=== PATIENT | male | born 1940 | race Caucasian/White ===

== ENCOUNTER 2016-10-26 15:37 | Emergency (ER) | payer OTHER ==
[2016-10-26 15:49] VITALS: TEMP 98.2
--- NOTE | 2016-10-26 16:37 | EDPHY ---
H & P Stated Complaint: Fell last Thursday;R rib pain;no resp difficulty Time Seen by Provider: 10/26/16 16:27 HPI/ROS: Chief complaint: Right back pain status post fall HPI: 75-year-old male fell several days ago onto his right hand side striking the edge of a table. Patient has had pain in his right back since that time. Hurts to cough and take a deep breath. Has had occasional productive greenish sputum. No fevers or chills. No nausea or vomiting. Patient states that is was mechanical fall. He has had increasing falls lately. [facility] A family friend did get him a walker today. ROS: 10 point Review of Systems is negative except as noted in the HPI. Past medical history: None Physical exam: Gen: Awake, Alert, No Distress HEENT: Nose: no rhinorrhea Eyes: PERRLA, EOMI Mouth: Moist mucosa Neck: Supple, no JVD Chest: He has a contusion in his right posterior chest wall with tenderness. There is no crepitus or step-offs. There is no subcutaneous emphysema., lungs clear to auscultation Heart: S1, S2 normal, no murmur Abd: Soft, non-tender, no guarding Back: no CVA tenderness, no midline tenderness Ext: no edema, non-tender Skin: no rash Neuro: CN II-XII intact, Sensation grossly intact, Strength 5/5 in bilateral upper and lower extremities - Personal History Current Tetanus Diphtheria and Acellular Pertussis (TDAP): Yes - Medical/Surgical History Other PMH: HTN. glaucoma - Social History Smoking Status: Former smoker Constitutional: Initial Vital Signs Temperature (C) 36.8 C 10/26/16 15:40 Heart Rate 69 10/26/16 15:40 Respiratory Rate 16 10/26/16 15:40 Blood Pressure 179/109 H 10/26/16 15:40 O2 Sat (%) 97 10/26/16 15:40 O2 Delivery Mode Room Air Allergies/Adverse Reactions: No Known Allergies Allergy (Unverified 10/26/16 15:49) Home Medications: Medication Instructions Recorded Hydrocodone/Acetaminophen 1 - 2 each PO Q4-6PRN PRN #10 10/26/16 [Hydrocodon-Acetaminophen 5-325] tablet Zolpidem Tartrate [Ambien 5MG (*)] 5 mg PO HS 03/12/17 Medical Decision Making ED Course/Re-evaluation: Patient status post fall with right back pain. There is no pneumothorax or infiltrate. Case management has been involved. They will be contacting him tomorrow to arrange for possible additional services. He has a walker now guarantees that he will be using it the future. He is asking to go home put. Otherwise will discharge with follow up with primary care physician. - Data Points Medications Given: Discontinued Medications Hydrocodone Bitart/Acetaminophen (Marcell 5/325mg Prepack#6) 1 btl TAKEHOME EDNOW ONE Stop: 10/26/16 19:13 Last Admin: 10/26/16 19:18 Dose: 1 btl Departure - Departure Disposition: Home, Routine, Self-Care Clinical Impression: Chest wall pain Condition: Good Instructions: Hydrocodone/Acetaminophen (By mouth), Chest Wall Pain (ED) Additional Instructions: Make sure usual walker at all times. Follow up with primary care physician in next 2-3 days for further evaluation. Return emergency depart for increasing falls, shortness of breath, worsening pain, nausea, vomiting or any other concerns. Referrals: NONE *PRIMARY CARE P,. [Unknown] - As per Instructions Prescriptions: Hydrocodone/Acetaminophen [Hydrocodon-Acetaminophen 5-325] 1 - 2 each PO Q4- 6PRN PRN #10 tablet PRN Reason: Pain, Severe
[2016-10-26] MEDS ORDERED: HYDROCOD/APAP 5/325 PREPACK#6 BTL TAKEHOME ONE (19:12)
[2016-10-26 19:25] VITALS: BP 150/120; PULSE 66; RESP 18; O2SAT 95
== END 2016-10-26 19:25 | disposition home or self-care (01) ==
DX: S29.9XXA Unspecified injury of thorax, initial encounter (principal); I10 Essential (primary) hypertension; Z87.891 Personal history of nicotine dependence; W01.198A Fall on same level from slipping, tripping and stumbling with subsequent striking against other object, initial encounter

== ENCOUNTER → 2017-07-17 | Outpatient (CLI) | payer OTHER | LOC: FIMAGING 14:06 | PROVIDERS: ATTEND Internal Medicine | DX: I65.23 Occlusion and stenosis of bilateral carotid arteries (principal) ==

== ENCOUNTER 2017-08-07 09:34 | Inpatient (IN) | payer OTHER ==
--- NOTE | 2017-07-29 11:58 | CPEKG ---
Heart Rate: 57 RR Interval: 1053 P-R Interval: 208 QRSD Interval: 88 QT Interval: 424 QTC Interval: 413 P Ivor: 49 QRS Ivor: 20 T Wave Ivor: 45 EKG Severity - NORMAL ECG - EKG Impression: SINUS RHYTHM Electronically Signed By: Dahlia Quinonez 29-Jul-2017 14:28:36
[2017-07-29 12:05] LABS: PLATELET COUNT 244 10^3/uL (150-400)
[~2017-08-07 09:34] MED LIST: ACETAMINOPHEN 500 MG TAB PO ONE; GABAPENTIN 300 MG CAP PO ONE; ceFAZolin 2 GM/SWFI 2 GM/20 ML SYR IVP ONE; morphINE PF 5 MG/10 ML INJ IT ONE
--- NOTE | 2017-08-07 10:42 | PDHPUP ---
History & Physical Update H&P update statement: This history and physical update is based on an assessment of the patient which was completed after admission or registration (within 24 hours), but prior to the surgery/procedure. H&P update: H&P reviewed & patient examined, no change in patient's condition since H&P completed (Patient has signed consents. Site has been marked. He understands that he has 6 lumbar verebrae and we will address the level at which he had a cyst. His symptoms are bilateral...we will plan for bilateral foraminotimies and leftsided TLIF. He is in agreement.)
[2017-08-07] MEDS ORDERED: LR 1,000 ML IV ONE (10:57)
[2017-08-07] MEDS ORDERED: LIDOCAINE 1% 2 ML INJ ID PRN (10:57)
--- NOTE | 2017-08-07 11:08 | PDANEPAE ---
ANE History of Present Illness TLIF Lumbar area ANE Past Medical History - Cardiovascular History Hx Hypertension: Yes Hx Arrhythmias: No Hx Chest Pain: No Hx Coronary Artery / Peripheral Vascular Disease: No Hx CHF / Valvular Disease: No Hx Palpitations: No - Pulmonary History Hx COPD: No Hx Asthma/Reactive Airway Disease: No Hx Recent Upper Respiratory Infection: No Hx Oxygen in Use at Home: No Hx Sleep Apnea: No Sleep Apnea Screening Result - Last Documented: Positive Pulmonary History Comment: hx of mild sleep apnea, dx about 25 years ago, CPAP not recommended at the time - Neurologic History Hx Cerebrovascular Accident: No Hx Seizures: No Hx Dementia: No Neurologic History Comment: TIA 1991, patient does not recall diagnosis - Endocrine History Hx Diabetes: No Obesity: mild - Renal History Hx Renal Disorders: No - Liver History Hx Hepatic Disorders: No - Neurological & Psychiatric Hx Hx Neurological and Psychiatric Disorders: No - Cancer History Hx Cancer: No - Congenital Disorder History Hx Congenital Disorders: No - GI History GERD: no Hx Gastrointestinal Disorders: No - Other Health History Other Health History: Glaucoma with stent in L eye - Chronic Pain History Chronic Pain: Yes - Surgical History Prior Surgeries: patial knee replacement 2013. vasectomy reversal 1986 ANE Review of Systems Review of Systems: - Exercise capacity METS (RN): 3 METS ANE Patient History - Allergies Allergies/Adverse Reactions: No Known Allergies Allergy (Verified 07/24/17 16:18) - Home Medications Home Medications: Dorzolamide HCl/Timolol Maleat [Cosopt Eye Drops] 1 drop EACHEYE DAILY 07/16/17 [Last Taken 08/06/17] Latanoprost 0.005% [Xalatan 0.005% (*)] 1 drops EACHEYE BID 07/16/17 [Last Taken 08/06/17] Lisinopril [Zestril 10 mg (*)] 10 mg PO DAILY 07/16/17 [Last Taken 08/07/17 08: 00] ZOLPIDEM TARTRATE [Ambien CR 12.5 mg] 12.5 mg PO DAILY@07/16/17 [Last Taken 08/06/17] Zolpidem Tartrate [Ambien 10 mg] 10 mg PO DAILY@07/16/17 [Last Taken 08/06/17 ] - Anes Hx Hx Anesthesia Complications (with details): difficult intubation requiring rescheduling of case, about 30 years ago - Smoking Hx Smoking Status: Former smoker - Alcohol Use Alcohol Use: Other (1 drink per day) - Family Anes Hx Family Anes Hx: none Family Hx Anesthesia Complications: NA ANE Labs/Vital Signs - Labs Result Diagrams: 07/29/17 11:35 07/29/17 11:35 - Vital Signs Height: 177.8 cm Weight: 90.718 kg ANE Physical Exam - Airway Neck exam: decreased ROM Mallampati Score: Class 3 (>3 FB mouth opening, short TM distance) Mouth exam: small mouth opening - Pulmonary Pulmonary: clear to auscultation - Cardiovascular Cardiovascular: regular rate and rhythym - ASA Status ASA Status: III ANE Anesthesia Plan Anesthesia Plan: general endotracheal anesthesia (possibility of awake intubation discussed, questions answered.)
[2017-08-07] MEDS ORDERED: ACETAMINOPHEN 500 MG TAB ONE (11:14)
[2017-08-07] MEDS ORDERED: GABAPENTIN 300 MG CAP ONE (11:15)
[2017-08-07] MEDS ORDERED: ceFAZolin 2 GM/SWFI 20 ML SYR IVP ONE (11:15)
[2017-08-07] MEDS ORDERED: MIDAZOLAM 2 MG/2 ML VIAL IVP ONE (11:21)
[2017-08-07] MEDS ORDERED: THROMBIN (BOVINE) 20,000 UNIT VIAL TP ONE (11:32)
[2017-08-07] MEDS ORDERED: BUPIVACAINE 0.25% 30 ML SDV ONE (11:33)
[2017-08-07] MEDS ORDERED: BACITRACIN 50,000 UNITS/10 ML SYR IRR ONE (11:34)
[2017-08-07] MEDS ORDERED: fentaNYL 250 MCG/5 ML INJ ONE (11:38)
[2017-08-07] MEDS ORDERED: PROPOFOL/EMULSION 500 MG/50 ML BOTTLE IV ONE (11:38)
[2017-08-07] MEDS ORDERED: ROCURONIUM 50 MG/5 ML VIAL ONE (11:40)
[2017-08-07] MEDS ORDERED: PROPOFOL 200 MG/20 ML VIAL ONE (14:30)
[2017-08-07] MEDS ORDERED: NALOXONE HCL 0.4 MG/ML INJ IVP PRN (15:37)
[2017-08-07] MEDS ORDERED: fentaNYL 100 MCG/2 ML INJ IVP PRN (15:47)
[2017-08-07] MEDS ORDERED: NS W/ 20 KCl/L 1,000 ML IV SCH (16:00)
[2017-08-07] MEDS ORDERED: BISACODYL 10 MG SUPP PR PRN (16:00)
[2017-08-07] MEDS ORDERED: METHOCARBAMOL 750 MG TAB PO PRN (16:00)
[2017-08-07] MEDS ORDERED: ONDANSETRON DISINTEGRATING 4 MG TAB PO PRN (16:00)
[2017-08-07] MEDS ORDERED: POLYETHYLENE GLYCOL 3350 17 GM PKT PO PRN (16:00)
[2017-08-07] MEDS ORDERED: diphenhydrAMINE 25 MG CAP PO PRN (16:00)
[2017-08-07] MEDS ORDERED: LACTULOSE 20 GM/30 ML UDCUP PO PRN (16:00)
[2017-08-07] MEDS ORDERED: MAGNESIUM HYDROXIDE 30 ML UDCUP PO PRN (16:00)
[2017-08-07] MEDS ORDERED: ONDANSETRON 4 MG/2 ML VIAL IVP PRN (16:00)
[2017-08-07] MEDS ORDERED: PROMETHAZINE HCL 25 MG/ML INJ IVP PRN (16:00)
[2017-08-07] MEDS ORDERED: HYDROmorphone HCL/NS/PF 0.4 MG/2 ML SYR IVP PRN (16:00)
--- NOTE | 2017-08-07 16:14 | POSTOPPROG ---
Post Op Note Date of Operation: 08/07/17 Surgeon: Sofia Smalls Treating Engineer Helper: Bea Smalls PA-C Anesthesiologist: Bobby Anesthesia: GET(General Endotracheal) Pre-op Diagnosis: lumbar stenosis, spondylolisthesis Post-op Diagnosis: same Indication: nerve compression Procedure: L5-6 laminectomy, TLIF, PSF with synovial cyst resection Findings: See dictation Inf/Abcess present in the surg proc area at time of surgery?: No Depth: Organ Space EBL: 50-100 Complications: none Drains: Carlos Ruiz Specimen(s): synovial cyst sent for path PA Addendum - Addendum .: S: Pt in PACU, denies pain or numbness/tingling O: Sleepy but awakens easily NAD VSS MAEx4 Motor 5/5 BUE/BLE +LT Incision dressed cdi JPx1 Verma in A: 76 yo M s/p L5-6 laminectomy, TLIF, PSF with synovial cyst resection P: PT/OT Pain management Brace when OOB Post op xrays pending TEDs, SCDs, lovenox POD#1 DC verma in AM F/u path (synovial cyst) Call NS with any issues D/w Dr Alex
--- NOTE | 2017-08-07 17:05 | POSTANESTH ---
Post Anesthetic Evaluation Cardiovascular Status: Normal, Stable Respiratory Status: Normal, Stable Level of Consciousness/Mental Status: Can Participate in Eval Pain Control: Adequate, Prn Tx Ordered Nausea/Vomiting Control: Adequate, Prn Tx Ordered Complications Possibly Related to Anesthesia: None Noted
[2017-08-07] MEDS: POLYETHYLENE GLYCOL 3350 17 GM PKT PO SCH ×2 (17:45→21:27)
[2017-08-07] MEDS: FAMOTIDINE 20 MG TAB PO SCH (20:22)
[2017-08-07] MEDS: SENNOSIDES/DOCUSATE SODIUM TAB PO SCH (20:22)
[2017-08-07] MEDS: ceFAZolin 2 GM/DEXTROSE 100 ML IV SCH (20:23)
[2017-08-07] MEDS: LATANOPROST 0.005% 2.5 ML OPHT DROPS EACHEYE SCH (20:25)
[2017-08-07] MEDS: ACETAMINOPHEN 500 MG TAB PO SCH (21:27)
--- NOTE | 2017-08-07 23:11 | GOP ---
[f rep st] OPERATIVE REPORT DATE OF OPERATION: 08/07/2017 SURGEON: Mac Alex MD TALENT ACQUISITION SOURCER: SILVIO Bustamante. ANESTHESIA: General. PREOPERATIVE DIAGNOSIS: 1. L5-L6 grade 1 spondylolisthesis with associated synovial cyst and lateral recess and foraminal stenosis. 2. Lower extremity radiculopathy. 3. Low back pain. 4. Treatment refractory to nonoperative intervention. POSTOPERATIVE DIAGNOSIS: 1. L5-L6 grade 1 spondylolisthesis with associated synovial cyst and lateral recess and foraminal stenosis. 2. Lower extremity radiculopathy. 3. Low back pain. 4. Treatment refractory to nonoperative intervention. PROCEDURE PERFORMED: 1. Posterior arthrodesis with approach to L5-L6. 2. Posterolateral fusion with bilateral cortical screw placement into L5 and L6 from the [employer] Sol[employer] cortical screw system. 3. Posterolateral fusion on the right between L5 and L6 with morselized autograft and allograft. 4. Decompressive laminectomy with bilateral medial facetectomies, foraminotomies, and epidural L5-L6 lesion resection with spinal cord decompression. 5. Left-sided L5-S1 transforaminal lumbar interbody fusion with a 9 x 28 mm Titanium PEEK Elevate cage filled with morselized autograft and allograft. 6. Use of intraoperative 3D Stealth Navigation. 7. Use of intraoperative fluoroscopy, less than 1 hour physician time. 8. Use of neuromonitoring. 9. Use of operative microscope. 10. Injection of preservative-free intrathecal narcotics. FINDINGS: per imaging with a large compressive extradural cyst SPECIMENS: Epidural mass sent to Pathology for permanent analysis. ESTIMATED BLOOD LOSS: 100 mL. INDICATIONS: This patient is a 76-year-old gentleman who presented with lower extremity radiculopathy and low back pain. He had evidence of grade 1 spondylolisthesis of L5 on L6 with an epidural compressive lesion on the left side, which appeared to be consistent with a synovial cyst. After discussion of risks, benefits, and treatment alternatives, and after failing nonoperative interventions, we decided to proceed forth with surgery as described above. DESCRIPTION OF PROCEDURE: The patient was brought to the operating theater and underwent general endotracheal anesthesia without complications. Venodyne, HIMANSHU hose, and appropriate lines were placed by Anesthesia. He was flipped prone onto the Carlos table, and all bony prominences were inspected and padded. The lower lumbar region was prepped and draped in the usual sterile surgical fashion. A time-out was completed per protocol and the patient received antibiotics within 1 hour of incision. Using lateral fluoroscopy and a spinal needle, we picked our entry point at the L5-L6 level. This was verified as the 2nd disk space up from the bottom, counting from the sacrum. This appeared to be consistent with the MRI imaging studies, which we double-checked twice. At this point, the incision was infiltrated with Marcaine with epinephrine. The incision was taken down with the scalpel blade and, using monopolar, taken down in the midline through the lumbodorsal fascia. A subperiosteal dissection was carried out to the medial facet joints of L5 and L6. We continued with our dissection out laterally; however, the patient was very muscular, and we found that his tissues were impeding our progress out to the lateral aspect toward the transverse processes. Because I did not feel that we should continue with an extensive dissection/bigger incision, I opted to place cortical screws instead of pedicle screws. We then placed the spinous process clamp of 3D Stealth Navigation system at L5. We completed a 3D Stealth Navigation spin. Using 3D Stealth Navigation, we placed the pilot safety inspector holes for the bilateral cortical screws into the L5 and L6 levels. All holes were manually palpated with the right L5 screw noted to be somewhat cortically breached medially and inferiorly. We drilled and tapped the left-sided screw holes as well and placed markers into these levels. We then placed the screws into L5 and L6 on the right side and completed a 3D Stealth Navigation spin. This did demonstrate that the right- sided cortical screw was medial and inferior, which we then subsequently removed and repositioned more cranially. We then drilled and replaced a right- sided cortical screw with a 5.0 x 35 mm screw on the right side, L6 screw with a 5.0 x 30 mm screw from the [employer] Solera cortical screw system. At this point, we brought the microscope into the field to assist with microscopic dissection and to maintain illumination and magnification. We completed a decompressive laminectomy with bilateral medial facetectomies using the Kerrison punches, Leksell rongeur, and angled curettes. There was a large firm lesion noted on the left side which was adherent within the ligamentous tissues to the dura. We peeled this off very carefully using microsurgical technique and sent it off to Pathology for permanent analysis. We completed a small foraminotomy to the right side L5-L6 foramen. We resected the pars on the left side and completed a facetectomy and decompressed the nerve. We then distracted the L5-S1 disk space and completed a left-sided L5-S1 diskectomy. We prepared the cartilaginous endplates and measured the interbody space. We placed a 9 x 28 mm titanium PEEK elevate cage filled with morselized autograft and allograft anteriorly toward the midline. We packed additional morselized autograft in the disk space interbody fusion. We let down the distraction and decorticated the bone on the right side between L5 and L6. We placed the left- sided cortical screws with a 5.0 x 30 mm screw on the left at L5, and with a 5.0 x 35 mm screw on the left at L6, again from the [employer] cortical screw system. Another 3D Stealth Navigation spin demonstrated excellent placement of the hardware and interbody graft. We placed 2 lordotic rods into the heads of the screws between L5 and L6 and secured them down with cap screws , which were then tightened per the tax services intern's setting. We placed morselized autograft and allograft on the right side between L5 and L6 for the posterolateral fusion. We injected preservative-free intrathecal narcotics and left the drain in the subfascial space. The wound was then closed in multiple layers using Vicryl sutures for the deep layers and Dermabond for the skin. The patient's wounds were dressed sterilely. He was then awakened, extubated, and taken to the recovery room in stable condition. There were no complications and no noted changes on neuromonitoring throughout the procedure. COMPLICATIONS: None. /[id number]/MODL MTDD
[2017-08-08] MEDS: ceFAZolin 2 GM/DEXTROSE 100 ML IV SCH (05:30)
[2017-08-08] MEDS: ACETAMINOPHEN 500 MG TAB PO SCH ×3 (05:30→21:42)
--- NOTE | 2017-08-08 08:33 | NEUSURGPN ---
Assessment/Plan: s/p L5/6 laminectomy/fusion and cyst resection and TLIF, POD #1 - doing well overall with no new complaints - will dc MONIK drain later today and change dressing - therapies - ambulate today - L spine xrays - lovenox POD 1, SCDc/TEDs - dc verma this morning - anticipate dc tomorrow if pain remains controlled Subjective: feeling good this morning with no new complaints; back/incisional pain Objective: A&O X 3 speech fluent dressing C//D/I WAQAR with serosanguinous drainage COTTRELL X 4 with good strength and sensation throughout Urinary Catheter Indication: Other (Use Comment) (dc today) Catheter Insertion Date: 08/07/17 Neurosurgery Physical Exam - Vitals, I&O, Labs I and O 08/07/17 08/08/17 08/09/17 05:59 05:59 05:59 Intake Total 2700 Output Total 450 Balance 2250 Weight 90.718 kg Intake: Oral (ml) 400 IV Intake (ml) 2100 IV Infused (ml) 200 ceFAZolin 2 GM/DEXTROSE 200 100 ml @ 200 mls/hr IV Q8H [facility] Rx#:[id number] Output: Urine (ml) 250 Catheter 250 Estimated Blood Loss (ml) 100 WAQAR Drain Output (ml) 100 Left Back Carlos Ruiz 100 Other: Intake Quantity Yes Sufficient Vital Signs Temp Pulse Resp BP Pulse Ox 36.6 C 66 16 87/64 L 97 08/08/17 07:55 08/08/17 07:55 08/08/17 07:55 08/08/17 07:55 08/08/17 07:55 Laboratory Results 07/29/17 11:35 07/29/17 11:35 ICD10 Worksheet Patient Problems: Problems Problem Status Onset Spondylolisthesis of lumbar region Acute - ICD10 Problem Qualifiers (1) Spondylolisthesis of lumbar region
[2017-08-08] MEDS: SENNOSIDES/DOCUSATE SODIUM TAB PO SCH ×2 (08:47→21:42)
[2017-08-08] MEDS: POLYETHYLENE GLYCOL 3350 17 GM PKT PO SCH ×3 (08:47→21:41)
[2017-08-08] MEDS: FAMOTIDINE 20 MG TAB PO SCH ×2 (08:47→21:41)
[2017-08-08] MEDS ORDERED: LISINOPRIL 10 MG TAB PO SCH (09:00)
[2017-08-08] MEDS: LATANOPROST 0.005% 2.5 ML OPHT DROPS EACHEYE SCH ×2 (10:26→21:41)
[2017-08-08] MEDS: DORZOLAMIDE/TIMOLOL 10 ML OPHT.BTL EACHEYE SCH (10:26)
[2017-08-08] MEDS ORDERED: NS 500 ML IV ONE (15:00)
--- NOTE | 2017-08-08 15:26 | ASMTCMCOM ---
CM Note CM Note Notes: Discussed SNF options with pt. He lives at [place] and would like to stay in [place]. Happy to go to [facility] if they accept him. Sent referral. Pt has Medicare Advantage Plan so [facility] will need to get insurance authorization. Date Signed: 08/08/2017 03:25 PM Electronically Signed By:ЕЛЕНА Acosta
[2017-08-08 15:38] LABS: PLATELET COUNT 177 10^3/uL (150-400)
[2017-08-08] MEDS ORDERED: ENOXAPARIN 40 MG/0.4 ML SYR SC SCH (16:00)
[2017-08-08] MEDS ORDERED: NS 1,000 ML IV SCH (18:45)
[2017-08-08] MEDS: HEPARIN 5,000 UNIT/0.5 ML SYR SC SCH (21:42)
[2017-08-08] MEDS: oxyCODONE IR 5 MG TAB PO PRN (23:42)
[2017-08-09 05:07] LABS: PLATELET COUNT 169 10^3/uL (150-400)
[2017-08-09] MEDS: HEPARIN 5,000 UNIT/0.5 ML SYR SC SCH ×3 (05:10→21:07)
[2017-08-09] MEDS: ACETAMINOPHEN 500 MG TAB PO SCH ×3 (05:10→21:09)
[2017-08-09] MEDS: oxyCODONE IR 5 MG TAB PO PRN ×2 (05:12→15:03)
--- NOTE | 2017-08-09 07:01 | NEUSURGPN ---
Assessment/Plan: s/p L5/6 laminectomy/fusion and cyst resection and TLIF, POD #2 - doing well overall with no new complaints - labs yesterday showed increase in BUN/Cr - medicine was consulted - appreciate their assistance. His labs appear to be trending in the right direction - therapies - ambulate today - L spine xrays pending - lovenox POD 1, SCDc/TEDs - anticipate dc when cleared by therapies and Medicine - anticipate tomorrow but likely he will require rehab and wont be safe to dc home Subjective: minimal pain; no complaints this morning Objective: A&O X 3 speech fluent dressing C//D/I COTTRELL X 4 with good strength and sensation throughout I was in the room with the patient and nursing - he is able to stand and take steps but appears to prefer a kyphotic posture with constant reminding of standing up straight; does not appear to have any focal neurologic deficits and able to hold body and ambulate a few steps with the 4WW Urinary Catheter in Place: No Catheter Insertion Date: 08/07/17 Neurosurgery Physical Exam - Vitals, I&O, Labs I and O 08/08/17 08/09/17 08/10/17 05:59 05:59 05:59 Intake Total 2700 2500 Output Total 450 775 Balance 2250 1725 Weight 90.718 kg Intake: Oral (ml) 400 2500 IV Intake (ml) 2100 IV Infused (ml) 200 ceFAZolin 2 GM/DEXTROSE 200 100 ml @ 200 mls/hr IV Q8H [facility] Rx#:[id number] Output: Urine (ml) 250 775 Catheter 250 775 Estimated Blood Loss (ml) 100 WAQAR Drain Output (ml) 100 Left Back Carlos Ruiz 100 Other: Intake Quantity Yes Yes Sufficient Output Comment Catheter straight cath Number of Stools Incontinence 1 Bladder Scan Volume (ml) Catheter 475 Incontinence 291 Vital Signs Temp Pulse Resp BP Pulse Ox 36.6 C 72 16 124/83 H 97 08/09/17 04:00 08/09/17 04:00 08/09/17 04:00 08/09/17 04:00 08/09/17 04:00 Laboratory Results 08/09/17 04:46 08/09/17 04:46 ICD10 Worksheet Patient Problems: Problems Problem Status Onset Spondylolisthesis of lumbar region Acute - ICD10 Problem Qualifiers (1) Spondylolisthesis of lumbar region
[2017-08-09] MEDS: SENNOSIDES/DOCUSATE SODIUM TAB PO SCH ×2 (08:57→21:09)
[2017-08-09] MEDS: FAMOTIDINE 20 MG TAB PO SCH (08:57)
[2017-08-09] MEDS: DORZOLAMIDE/TIMOLOL 10 ML OPHT.BTL EACHEYE SCH (08:58)
[2017-08-09] MEDS: LATANOPROST 0.005% 2.5 ML OPHT DROPS EACHEYE SCH ×2 (08:58→21:07)
[2017-08-09] MEDS: POLYETHYLENE GLYCOL 3350 17 GM PKT PO SCH ×3 (09:00→21:09)
--- NOTE | 2017-08-09 09:06 | GCON ---
[f rep st] CONSULTATION DATE OF CONSULTATION: 08/08/2017 REFERRING PHYSICIAN: Dr. Alex CHIEF COMPLAINT: Hypotension and elevated creatinine. HISTORY OF PRESENT ILLNESS: The patient is a pleasant 76-year-old gentleman with a past medical hist oryof hypertension, who was admitted to the hospital on 08/07/2017 in anticipation of low back surger y for a decompressive laminectomy and fusion. He was noted to have some low blood pressure readings this afternoon with systolics in the 80s. He was given a bolus of normal saline of 500, which did im prove his systolic readings to 112. He was also felt by Nursing possibly a little bit confused, so l abs were ordered which were notable for a creatinine of 2.9. His preoperative creatinine was obtaine d earlier this month and was within normal limits at 1.1. His white blood cell count was also mildly elevated at 13, but he has been afebrile throughout the day. In review of outpatient records, it ap pears his blood pressures have been running elevated in the outpatient setting recently despite him t aking lisinopril/hydrochlorothiazide 20/12.5 mg. The recommendation was to increase that dose to twi ce a day. It appears this change was made on 08/05/2017. PAST MEDICAL HISTORY: 1. Hypertension. 2. Obstructive sleep apnea. 3. Insomnia. 4. Burning mouth syndrome. PAST SURGICAL HISTORY: 1. Tonsillectomy. 2. Knee arthroscopy. 3. LASIK surgery. 4. Low back surgery with Dr. Alex on 08/07/2017. MEDICATIONS: Current medications here in the hospital include: 1. Acetaminophen 1000 mg every 8 hours. 2. Dulcolax 10 mg per rectum daily as needed. 3. Diphenhydramine 25-50 every 6 hours. 4. Dorzolamide/Timolol eye drops. 5. Lovenox 40 mg subcu daily. 6. Pepcid 20 mg twice a day. 7. Dilaudid 0.2-0.4 mg IV every hour as needed. 8. Lactulose 20 g t.i.d. as needed. 9. Latanoprost eye drops twice a day. 10. Methocarbamol 750 mg 4 times a day as needed. 11. Zofran 4 mg IV every 4 hours as needed. 12. Oxycodone 5-10 mg every 4 hours as needed. 13. MiraLAX 17 g daily as needed for constipation and 3 times a day scheduled. 14. Promethazine 12.5-25 mg IV 4 times a day as needed. ALLERGIES: No known drug allergies. SOCIAL HISTORY: The patient is a nonsmoker. He is currently . FAMILY HISTORY: Mother had a history of myocardial infarction in her 80s. EXAM: VITAL SIGNS: Temperature 36.4, blood pressure 112/59, heart rate 85. Low blood pressure was 87/64. Respirations 15, saturating 92% on room air. GENERAL: The patient is awake, alert, conversa nt, in no acute distress. HEENT: Extraocular movements intact. Pupils equal, no scleral icterus. Mucous membranes appear dry. NECK: Supple. No thyroid enlargement noted. CHEST: Clear to auscult ation with normal respiratory effort. HEART: Regular rate and rhythm. No murmurs. ABDOMEN: Soft, nontender, nondistended. : No Trevino catheter in place. EXTREMITIES: No significant pitting julianne ma. Compression devices in place. MUSCULOSKELETAL: No calf pain with palpation. NEUROLOGIC: Cran ial nerves 2 through 12 appear intact. Strength 5/5 in extremities. LABS: White blood cell count is 13, hemoglobin 14, platelets 177. Sodium is 137, potassium 3.9, chl oride 101, bicarb 25. BUN 37, creatinine 2.9, glucose 101. ASSESSMENT/PLAN: 1. Acute kidney injury, likely multifactorial. Could be an element of hypovolemia and hypotension r elated, but also may be related to recent dose adjustments upward with lisinopril. We know his basel ine just done earlier this month was within normal limits. I recommend checking a urine urea and cre atinine. We will also order renal ultrasound for the morning considering his history of hypertension . Intravenous fluids overnight and repeat creatinine in the morning. We will also check a urinalysi s to evaluate for protein. 2. Hypotension, improving with intravenous fluids. We will continue with normal saline at 125 mL pe r hour. 3. Encephalopathy. Uncertain, could be related to low blood pressures. I will recommend that we ho ld his Benadryl at as needed for now. 4. Back pain. He states his back pain is very well controlled. He rates it at a 3. He has not nee ded to take any narcotic pain medications throughout the day today. 5. Deep vein thrombosis prophylaxis. We will adjust Lovenox to heparin in light of the acute kidney injury. 6. Bowel and bladder. Patient does have a bowel regimen in place. 7. Disposition. I appreciate the opportunity to help out in this patient's care. We will follow cher amador during this hospitalization. /[id number]/MODL
--- NOTE | 2017-08-09 12:19 | HOSPPROG ---
Hospitalist Progress Note Assessment/Plan: Patient is a 76-year-old gentleman with past medical history of hypertension and was admitted for low back surgery for a decompression laminectomy and fusion. His blood pressure has been running low so he was given fluids. In addition his kidney function was worse. His diuretic and PATRICIA-inhibitor had been increased. Today is my first encounter w the patient, chart reviewed. * acute kidney injury with associated hypovolemia and hypotension -renal ultrasound shows no hydronephrosis, nothing acute -UA is negative for protein has some red blood cells * hypotension -resolved, now a bit hypertensive, will hold ACEI and diuretics due to recent NELLY -will order prn med * acute encephalopathy -he is alert and oriented, but knows he gets confused and can be a bit impulsive -will order yogi belt while in chair, ask ST to do a cognitive evaluateion * back pain -status post L5/L6 laminectomy, fusion and resection TLIF postop day 2. *leukocytosis -likely acute reaction from surgery -will follow *dvt prophylaxis: Heparin tid Plan: prn hydralazine for htn, ask ST to see for cognitive evaluation, repeat labs in a.m. Subjective: Edwin know he is confused, not c/o pain. Objective: Vital Signs Temp Pulse Resp BP Pulse Ox 37.2 C 81 18 159/90 H 94 08/09/17 11:19 08/09/17 11:19 08/09/17 11:19 08/09/17 11:19 08/09/17 11:19 Laboratory Results 08/09/17 04:46 08/09/17 04:46 08/08/17 08/09/17 08/10/17 05:59 05:59 05:59 Intake Total 2700 2500 Output Total 450 775 860 Balance 2250 1725 -860 - Physical Exam Constitutional: no apparent distress, appears nourished Eyes: PERRL Ears, Nose, Mouth, Throat: hearing normal Cardiovascular: regular rate and rhythym Respiratory: no respiratory distress Skin: warm Musculoskeletal: generalized weakness, other (legs buckle with standing) Neurologic: AAOx3 Psychiatric: interacting appropriately, not anxious ICD10 Worksheet Patient Problems: Problems Problem Status Onset Spondylolisthesis of lumbar region Acute
--- NOTE | 2017-08-09 14:09 | ASMTCMCOM ---
CM Note CM Note Notes: Patient has been accepted at [facility] if all therapy recommendations are on board. PT says SNF, OT says inpatient rehab. Inpatient rehab is awaiting therapy recommendations to do their eval. SPL has not made recommendations yet. Patient wants to go to [facility] which is close to his home in [place]. CM will follow. Date Signed: 08/09/2017 02:10 PM Electronically Signed By:Chelle Collins LCSW
[2017-08-09] MEDS ORDERED: hydrALAZINE 10 MG TAB PO PRN (15:36)
[2017-08-09 18:03] LABS: PLATELET COUNT 166 10^3/uL (150-400)
--- NOTE | 2017-08-09 18:05 | CPEKG ---
Heart Rate: 128 RR Interval: 469 QRSD Interval: 84 QT Interval: 304 QTC Interval: 444 QRS [place]: -1 T Wave [place]: 17 EKG Severity - ABNORMAL ECG - EKG Impression: ATRIAL FIBRILLATION, V-RATE 86-153 Electronically Signed By: Ramana Dallas 11-Aug-2017 07:49:49
[2017-08-09] MEDS ORDERED: METOPROLOL TARTRATE 50 MG TAB PO ONE (18:15)
--- NOTE | 2017-08-09 18:44 | HOSPPROG ---
Hospitalist Progress Note Assessment/Plan: Addendum to daily notes from [facility]: # New Onset Afib with RVR - patients nurse contacted my with heart rates that were elevated in 130-140's which was new. She noted that it was irregular. ECG was ordered. I went to bedside to evalute patient. ECG showed afib with RVR with rates in 130's. Other vitals stable with SBP in 140's. No respiratory distress. Metoprolol 50mg po X 1 given and patient transferred down to PCU for telemetry monitoring and potentially with need for diltiazem drip. Subjective: New onset, afib with RVR Objective: Vital Signs Temp Pulse Resp BP Pulse Ox 37.4 C 144 H 18 136/104 H 92 08/09/17 16:00 08/09/17 18:17 08/09/17 16:00 08/09/17 18:17 08/09/17 16:00 Laboratory Results 08/09/17 18:00 08/09/17 18:00 08/08/17 08/09/17 08/10/17 05:59 05:59 05:59 Intake Total 2700 2500 1500 Output Total 450 775 860 Balance 2250 1725 640 - Physical Exam Constitutional: no apparent distress Cardiovascular: irregularly irregular, tachycardia Respiratory: no respiratory distress Neurologic: AAOx3 Psychiatric: not anxious ICD10 Worksheet Patient Problems: Problems Problem Status Onset Spondylolisthesis of lumbar region Acute
[2017-08-10] MEDS: HEPARIN 5,000 UNIT/0.5 ML SYR SC SCH ×3 (05:24→21:30)
[2017-08-10] MEDS: ACETAMINOPHEN 500 MG TAB PO SCH ×3 (05:24→21:30)
--- NOTE | 2017-08-10 07:59 | NEUSURGPN ---
Assessment/Plan: s/p L5/6 laminectomy/fusion and cyst resection and TLIF, POD #3 - doing well this morning with no new complaints - he had a rapid and irregular heart beat yesterday and had t be transferred to tele for monitoring and medications. Appreciate Medicine's continued involvement and management. Cardiology has been consulted and will see patient today. - labs appear to be trending in the right direction - therapies - ambulate today and continue to work towards placement/discharge in the interim - L spine xrays pending - lovenox POD 1, SCDc/TEDs - continue verma as he has been confused and unable to void. will leave in for another day to better monitor his I & O - minimize narcotics as he is sensitive to medications - anticipate dc when cleared by therapies and Medicine - he will require rehab and wont be safe to dc home Subjective: no complaints this morning, he feels fine and has minimal pain; denies any CP Objective: A&O X 3 speech fluent dressing C//D/I COTTRELL X 4 with good strength and sensation throughout Urinary Catheter in Place: Yes Urinary Catheter Indication: Acute Urinary Retention, Accurate I & O Required Catheter Insertion Date: 08/07/17 Neurosurgery Physical Exam - Vitals, I&O, Labs I and O 08/09/17 08/10/17 08/11/17 05:59 05:59 05:59 Intake Total 2500 1700 Output Total 775 1960 Balance 1725 -260 Intake: Oral (ml) 2500 1700 Output: Urine (ml) 775 1960 Catheter 775 1950 Urinal 10 Other: Intake Quantity Yes Sufficient Output Comment Catheter straight cath Number of Voids Catheter 1 Number of Stools Incontinence 1 Bladder Scan Volume (ml) Catheter 475 Incontinence 291 Urinal 848 Vital Signs Temp Pulse Resp BP Pulse Ox 36.6 C 61 16 142/81 H 95 08/10/17 04:00 08/10/17 04:00 08/10/17 04:00 08/10/17 04:00 08/10/17 04:00 Laboratory Results 08/09/17 18:00 08/10/17 03:44 ICD10 Worksheet Patient Problems: Problems Problem Status Onset Spondylolisthesis of lumbar region Acute - ICD10 Problem Qualifiers (1) Spondylolisthesis of lumbar region
[2017-08-10] MEDS ORDERED: FAMOTIDINE 20 MG TAB PO SCH ×2 (09:00)
[2017-08-10] MEDS: TAMSULOSIN HCL 0.4 MG CAP PO SCH (09:03)
[2017-08-10] MEDS: POLYETHYLENE GLYCOL 3350 17 GM PKT PO SCH ×3 (09:03→21:31)
[2017-08-10] MEDS: SENNOSIDES/DOCUSATE SODIUM TAB PO SCH ×2 (09:03→21:31)
[2017-08-10] MEDS: DORZOLAMIDE/TIMOLOL 10 ML OPHT.BTL EACHEYE SCH (09:04)
[2017-08-10] MEDS: LATANOPROST 0.005% 2.5 ML OPHT DROPS EACHEYE SCH ×2 (09:04→21:30)
--- NOTE | 2017-08-10 09:30 | PDCARCONS ---
Cardiology Consult Reason for Consult: Perioperative atrial fibrillation Chief Complaint: None Requesting Physician: Kamla History of Present Illness: 76-year-old male admitted for laminectomy complicated by brief episode of confusion, low blood pressure, elevation in creatinine with a single episode of paroxysmal atrial fibrillation. This is in the setting of known sleep apnea, hypertension. He has no prior cardiovascular history. In particular no history of coronary artery disease, valvular heart disease, prior dysrhythmia. He did have a TIA many years ago. This morning he is feeling well without palpitations, chest pain, shortness of breath, PND, orthopnea. History Information - Allergies/Home Medication List Allergies/Adverse Reactions: No Known Allergies Allergy (Verified 07/24/17 16:18) Home Medications: Dorzolamide HCl/Timolol Maleat [Cosopt Eye Drops] 1 drop EACHEYE DAILY 07/16/17 [Last Taken 08/06/17] Latanoprost 0.005% [Xalatan 0.005% (*)] 1 drops EACHEYE BID 07/16/17 [Last Taken 08/06/17] Lisinopril [Zestril 10 mg (*)] 10 mg PO DAILY 07/16/17 [Last Taken 08/07/17 08: 00] ZOLPIDEM TARTRATE [Ambien CR 12.5 mg] 12.5 mg PO DAILY@22 07/16/17 [Last Taken 08/06/17] Zolpidem Tartrate [Ambien 10 mg] 10 mg PO DAILY@23 07/16/17 [Last Taken 08/06/17 ] I have personally reviewed and updated: family history, medical history, social history, surgical history Past Medical History: - Past Medical History hypertension, TIA - Surgical History Reports: neurological surgery - Family History Positive for: non-pertinent - Social History Smoking Status: Former smoker Alcohol Use: Other (1 drink per day) Age in Years: 75 or older Sex: Male Hypertension History: Yes Stroke/TIA/Thromboembolism History: Yes Physical Exam Physical Exam: Temp Pulse Resp BP Pulse Ox 36.8 C 78 18 121/95 H 95 08/10/17 08:00 08/10/17 08:00 08/10/17 08:00 08/10/17 08:00 08/10/17 08:00 O2 (L/minute) 1 Constitutional: no apparent distress, not in pain Eyes: anicteric sclera Ears, Nose, Mouth, Throat: moist mucous membranes Cardiovascular: regular rate and rhythym, No systolic murmur, No JVD Peripheral Pulses: 1+: carotid (R), carotid (L) Respiratory: no respiratory distress, no rales or rhonchi Gastrointestinal: normoactive bowel sounds, soft, non-tender abdomen, no palpable masses Genitourinary: no bladder fullness Skin: warm, normal color Neurologic: AAOx3, No facial droop Psychiatric: interacting appropriately, not anxious Lymph, Heme, Immunologic: no cervical LAD, no supraclavicular LAD Lab and Imaging 08/09/17 18:00 08/10/17 03:44 WBC 13.31 10^3/uL (3.80-9.50) H 08/09/17 18:00 RBC 4.29 10^6/uL (4.40-6.38) L 08/09/17 18:00 Hgb 14.4 g/dL (13.7-17.5) 08/09/17 18:00 Hct 41.3 % (40.0-51.0) 08/09/17 18:00 MCV 96.3 fL (81.5-99.8) 08/09/17 18:00 MCH 33.6 pg (27.9-34.1) 08/09/17 18:00 MCHC 34.9 g/dL (32.4-36.7) 08/09/17 18:00 RDW 12.2 % (11.5-15.2) 08/09/17 18:00 Plt Count 166 10^3/uL (150-400) 08/09/17 18:00 MPV 10.3 fL (8.7-11.7) 08/09/17 18:00 Neut % (Auto) 71.7 % (39.3-74.2) 08/09/17 18:00 Lymph % (Auto) 9.5 % (15.0-45.0) L 08/09/17 18:00 [place] % (Auto) 17.9 % (4.5-13.0) H 08/09/17 18:00 Eos % (Auto) 0.2 % (0.6-7.6) L 08/09/17 18:00 Baso % (Auto) 0.2 % (0.3-1.7) L 08/09/17 18:00 Nucleat RBC Rel Count 0.0 % (0.0-0.2) 08/09/17 18:00 Absolute Neuts (auto) 9.55 10^3/uL (1.70-6.50) H 08/09/17 18:00 Absolute Lymphs (auto) 1.26 10^3/uL (1.00-3.00) 08/09/17 18:00 Absolute Monos (auto) 2.38 10^3/uL (0.30-0.80) H 08/09/17 18:00 Absolute Eos (auto) 0.03 10^3/uL (0.03-0.40) 08/09/17 18:00 Absolute Basos (auto) 0.03 10^3/uL (0.02-0.10) 08/09/17 18:00 Absolute Nucleated RBC 0.00 10^3/uL (0-0.01) 08/09/17 18:00 Immature Gran % 0.5 % (0.0-1.1) 08/09/17 18:00 Immature Gran # 0.06 10^3/uL (0.00-0.10) 08/09/17 18:00 Sodium 141 mEq/L (134-144) 08/10/17 03:44 Potassium 4.4 mEq/L (3.5-5.2) 08/10/17 03:44 Chloride 103 mEq/L (97-110) 08/10/17 03:44 Carbon Dioxide 28 mEq/l (22-31) 08/10/17 03:44 Anion Gap 10 mEq/L (8-16) 08/10/17 03:44 BUN 28 mg/dL (7-23) H 08/10/17 03:44 Creatinine 1.2 mg/dL (0.7-1.3) 08/10/17 03:44 Estimated GFR 59 08/10/17 03:44 Glucose 94 mg/dL (70-100) 08/10/17 03:44 Calcium 9.1 mg/dL (8.5-10.4) 08/10/17 03:44 Phosphorus 2.6 mg/dL (2.5-4.5) 08/10/17 03:44 Troponin I 0.020 ng/mL (0.000-0.034) 08/09/17 18:00 Albumin 2.9 g/dL (3.5-5.0) L 08/10/17 03:44 TSH 1.110 uIU/mL (0.465-4.680) 08/10/17 03:44 Urine Color YELLOW 08/08/17 23:25 Urine Appearance HAZY 08/08/17 23:25 Urine pH 5.0 (5.0-7.5) 08/08/17 23:25 Ur Specific [place] 1.015 (1.002-1.030) 08/08/17 23:25 Urine Protein NEGATIVE (NEGATIVE) 08/08/17 23:25 Urine Ketones NEGATIVE (NEGATIVE) 08/08/17 23:25 Urine Blood 1+ (NEGATIVE) H 08/08/17 23:25 Urine Nitrate NEGATIVE (NEGATIVE) 08/08/17 23:25 Urine Bilirubin NEGATIVE (NEGATIVE) 08/08/17 23:25 Urine Urobilinogen NEGATIVE EU (0.2-1.0) 08/08/17 23:25 Ur Leukocyte Esterase NEGATIVE (NEGATIVE) 08/08/17 23:25 Urine RBC 15-25 /hpf (0-3) H 08/08/17 23:25 Urine WBC 3-5 /hpf (0-3) H 08/08/17 23:25 Ur Epithelial Cells NONE SEEN /lpf (NONE-1+) 08/08/17 23:25 Amorphous Sediment PRESENT /hpf (NONE-1+) 08/08/17 23:25 Urine Bacteria TRACE /hpf (NONE SEEN) H 08/08/17 23:25 Urine Mucus TRACE /lpf (NONE-1+) 08/08/17 23:25 Ur Random Creatinine 128.5 mg/dL 08/08/17 23:25 Ur Random Urea Nitrogn 461.0 mg/dL 08/08/17 23:25 Urine Glucose NEGATIVE (NEGATIVE) 08/08/17 23:25 Patient ABO/Rh O POSITIVE 07/31/17 13:13 Antibody Screen NEGATIVE 07/31/17 13:13 Laboratory Tests 08/09/17 08/10/17 18:00 03:44 Creatinine 1.2 Troponin I 0.020 TSH 1.110 Chest X-ray Interpretation: other (Chest x-ray revealed no cardiomegaly.) EKG Interpretation: Positive for: other (EKG from yesterday shows atrial fibrillation with rapid ventricular response. There were no EKG changes concerning for ischemia.) A/P Assessment: 76-year-old male with perioperative atrial fibrillation in the setting of hypertension, strep to sleep apnea, advanced age, history of TIA. At this point he is in sinus rhythm. There are no indications for chronic rhythm or rate control at this point. Would need to consider long-term anticoagulation for thromboprophylaxis. However, with recent surgery would make this decision over the next 2-3 weeks. Considerations for outpatient Holter monitor. Will await echocardiogram to exclude significant structural heart disease requiring more aggressive evaluation prior to discharge. Outpatient stress testing at some point in time. Clinical follow-up. Plan: 1. Inpatient echocardiogram and EKG prior to discharge 2. Outpatient cardiology evaluation with potential stress testing. 3. Outpatient consideration for chronic anticoagulation for thromboprophylaxis. 4. Continue control blood pressure. 5. Assessment of lipids.
[2017-08-10] MEDS: oxyCODONE IR 5 MG TAB PO PRN (11:26)
--- NOTE | 2017-08-10 14:21 | ECHO ---
[email or web address] [address] Main: [phone] Fax: Transthoracic Echocardiogram Name: AMBROSE ALLEN MR#: [id number] Study Date: 08/10/2017 Study Time: 01:49 PM Date of : 1940 Age: 76 year(s) Height: 177.8 cm (70 in.) Weight: 90.72 kg (200 lb.) BSA: 2.09 m2 Gender: Male Examination: Echo Indication: new onset afib Image Quality: Technically Difficult Contrast: Requested by: Armando Chamorro BP: 134 mmHg/78 mmHg Heart Rate: Rhythm: Normal sinus rhythm Indication: new onset afib Procedure Staff Accounting Policy Consultant: Mehreen Dahl Physician: Chirag Sorenson Requesting Provider: Conclusions: No pericardial effusion. Normal left ventricular size with ejection fraction of 72%. Concentric left ventricular hypertrophy. No significant valvular abnormalities by Doppler or 2 dimensional study. Measurements: Chambers Valvular Assessment AV/MV Valvular Assessment TV/PV Normal Normal Normal Name Value Range Name Value Range Name Value Range Ao Nani (MM): 3.5 cm (2.2 cm-3.7 AV Vmax: 1.32 m/s (1 m/s-1.7 PV Vmax: 0.93 m/s (0.6 m/s-0.9 cm) m/s) m/s) IVSd (2D): 1.5 cm (0.6 cm-1.1 AV maxP mmHg ( - ) PV PGmax: 3 mmHg ( - ) cm) LVOT Vmax: 1.05 m/s (0.7 m/s-1.1 LVDd (2D): 4.7 cm (4.2 cm-5.9 m/s) cm) MV E Vmax: 0.76 m/s ( - ) LVDs (2D): 2.8 cm (2.1 cm-4 MV A Vmax: 0.78 m/s ( - ) cm) MV E/A: 0.97 ( - ) LVPWd (2D): 1.2 cm (0.6 cm-1 cm) LVEF (BP): 72 % (>=55 %) RVDd(2D): 2.8 cm (1.9 cm-3.8 cmmm) Continued Measurements: Chambers Valvular Assessment AV/MV Name Value Name Value LADs Lon.0 cm MV DecTime: 218 m/s LA Area: 18.9 cm2 MV E' Septal: 0.08 m/s LA Volume: 54 ml MV E/E' Septal: 9.30 LA Volume Index: 25.8 ml/m2 MV E/E' Lateral: 11.20 Patient: AMBROSE ALLEN Study Date: 08/10/2017 Page 1 of 2 01:49 PM Additional Vessels Name Value Ao Ascendin.8 cm Findings: Left Ventricle: Normal size left ventricle. Concentric LV hypertrophy. Normal global systolic LV function. EF is 72 %. No regional wall motion abnormality. Normal diastolic LV function. Right Ventricle: Normal size right ventricle. Normal RV function. Left Atrium: The left atrium is normal in size. Right Atrium: The right atrium is normal in size. Mitral Valve: The mitral valve is normal in appearance and function. Trivial to mild mitral regurgitation. No mitral stenosis is present. Aortic Valve: The aortic valve is tri-leaflet and functions normally. Trivial to mild aortic valve regurgitation. No aortic valve stenosis is present. Tricuspid Valve: The tricuspid valve is normal in appearance and function. There is no significant tricuspid valve regurgitation. Pulmonary artery pressure is not obtained due to inadequate TR jet. Pulmonic Valve: The pulmonic valve is normal in appearance and function. Trivial to mild pulmonic valve regurgitation. Aorta: The aorta is normal. Normal size aortic root measuring 3.5 cm. Normal size ascending aorta measuring 3.8 cm. IVC: The IVC is normal sized. Pericardium: No pericardial effusion. (No Signature Object) Patient: AMBROSE ALLEN Study Date: 08/10/2017 Page 2 of 2 01:49 PM [id number]
--- NOTE | 2017-08-10 15:46 | HOSPPROG ---
Hospitalist Progress Note Assessment/Plan: DIAGNOSES: -status post lumbar laminectomy -acute encephalopathy, multifactorial, still encephalopathic on exam today -new onset atrial fibrillation with rapid ventricular rate last night, spontaneous converted at this time to sinus rhythm -acute renal failure, improving with fluids -obstructive sleep apnea -hypertension well controlled; some hypotension earlier, resolved at this point after fluids -acute urinary retention, asymptomatic, started on Flomax at this point PLANS: -continue to minimize sedating medicines, other factors that increased confusion -increase in ambulation as able -continue rate control as needed for AFib -agree with continuing low-dose anticoagulation but avoid high-dose anticoagulation until outpatient therapy is deemed safe by his Neurosurgery -follow urinary output closely -CPAP -follow renal function SUBJECTIVE: States feels well other than back pain when he moves and some posterior left leg pain with movement No chest pain No shortness of breath No fever symptoms Eating well Ambulation still quite limited by pain OBJECTIVE Vitals reviewed: Stable without fever 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 Sorenson: Normal ejection fraction, no significant valvular abnormalities or other concerning abnormalities Objective: Vital Signs Temp Pulse Resp BP Pulse Ox 37.1 C 65 20 135/84 H 95 08/10/17 12:48 08/10/17 11:40 08/10/17 11:40 08/10/17 11:40 08/10/17 11:40 Laboratory Results 08/09/17 18:00 08/10/17 03:44 08/09/17 08/10/17 08/11/17 06:59 06:59 06:59 Intake Total 2500 1700 Output Total 775 1960 Balance 1725 -260 ICD10 Worksheet Patient Problems: Problems Problem Status Onset Spondylolisthesis of lumbar region Acute
--- NOTE | 2017-08-10 15:52 | CPEKG ---
Heart Rate: 61 RR Interval: 984 P-R Interval: 176 QRSD Interval: 92 QT Interval: 416 QTC Interval: 419 P Blair: -53 QRS [place]: 12 T Wave [place]: 23 EKG Severity - OTHERWISE NORMAL ECG - EKG Impression: SINUS OR ECTOPIC ATRIAL RHYTHM Electronically Signed By: Ramana Dallas 11-Aug-2017 07:50:03
[2017-08-11] MEDS: ACETAMINOPHEN 500 MG TAB PO SCH ×3 (05:22→21:59)
[2017-08-11] MEDS: HEPARIN 5,000 UNIT/0.5 ML SYR SC SCH ×3 (05:22→21:58)
[2017-08-11] MEDS: SENNOSIDES/DOCUSATE SODIUM TAB PO SCH ×2 (07:20→21:58)
[2017-08-11] MEDS: POLYETHYLENE GLYCOL 3350 17 GM PKT PO SCH ×3 (07:20→21:59)
--- NOTE | 2017-08-11 08:09 | NEUSURGPN ---
Date of Surgery: 08/07/17 Post Op Day: 4 Assessment/Plan: s/p L5/6 laminectomy/fusion and cyst resection and TLIF, POD #4 - doing well this morning with no new complaints -pain well controlled with oral medications - PT/OT - encourage ambulation today and continue to work towards placement/ discharge in the interim - Post op lumbar x-rays pending - Lovenox POD #1, SCDc/TEDs - DC verma this am, Dr Alex spoke with Dr Delarosa yesterday. Patient started on flomax, urology PA will see patient today - Continue to minimize narcotics - Case management work on dispo options/placement -Discussed patient with Dr Alex Please call neurosurgery with any questions/concerns Subjective: Pain well controlled Objective: A&O X 3 speech fluent dressing C//D/I COTTRELL X 4 with good strength and sensation throughout Neuro Check Frequency: per routine Urinary Catheter in Place: Yes Urinary Catheter Indication: Acute Urinary Retention, Accurate I & O Required Catheter Insertion Date: 08/07/17 - Physician Discussed Patient with Dr.: Alex Neurosurgery Physical Exam - Vitals, I&O, Labs I and O 08/10/17 08/11/17 08/12/17 05:59 05:59 05:59 Intake Total 1700 900 Output Total 1960 1150 Balance -260 -250 Intake: Oral (ml) 1700 900 Output: Urine (ml) 1959 1150 Catheter 1950 1150 Urinal 10 Other: Intake Quantity Yes Sufficient Number of Voids Catheter 1 Number of Stools Incontinence 1 Urinal 2 Bladder Scan Volume (ml) Urinal 848 Vital Signs Temp Pulse Resp BP Pulse Ox 36.8 C 75 16 134/65 H 94 08/11/17 04:00 08/11/17 04:00 08/11/17 04:00 08/11/17 04:00 08/11/17 04:00 Laboratory Results 08/09/17 18:00 08/11/17 05:15 ICD10 Worksheet Patient Problems: Problems Problem Status Onset Spondylolisthesis of lumbar region Acute
[2017-08-11] MEDS: TAMSULOSIN HCL 0.4 MG CAP PO SCH (08:15)
[2017-08-11] MEDS: LATANOPROST 0.005% 2.5 ML OPHT DROPS EACHEYE SCH ×2 (08:26→21:58)
[2017-08-11] MEDS: DORZOLAMIDE/TIMOLOL 10 ML OPHT.BTL EACHEYE SCH (08:26)
--- NOTE | 2017-08-11 10:36 | HOSPPROG ---
Hospitalist Progress Note Assessment/Plan: DIAGNOSES: -status post lumbar laminectomy -acute encephalopathy, multifactorial, still encephalopathic on exam today -new onset atrial fibrillation with rapid ventricular rate last night, spontaneous converted at this time to sinus rhythm -acute renal failure, continued improvement today -obstructive sleep apnea -hypertension well controlled; some hypotension earlier, resolved at this point after fluids -acute urinary retention, asymptomatic, Trevino removed today, started on Flomax at this point PLANS: -continue to minimize sedating medicines, other factors that increase confusion -will try Neurontin at bedtime for his left leg posterior pain hoping that will allow us to minimize narcotics moving for -increase in ambulation as able -continue rate control as needed for AFib -agree with continuing low-dose anticoagulation but avoid high-dose anticoagulation until outpatient full-dose therapy is deemed safe by his Neurosurgery -will need outpatient cardiology follow-up for the AFib -follow urinary output closely now with Trevino out -CPAP -follow renal function SUBJECTIVE: States feels well other than back pain when he moves; does note continued posterior left leg pain even at rest No chest pain No shortness of breath No fever symptoms Eating well Ambulation still quite limited by pain OBJECTIVE Vitals reviewed: Stable without fever 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, my review: Sinus Exam: alert relaxed, has a reasonably normal conversation but still somewhat disoriented when pushed for details skin warm dry color ok resps not labored lungs clear BSs heart regular abd soft nondistended nontender, bowel sounds present limbs warm, no edema iv site ok Laboratory data reviewed: Creatinine down to 1.0, electrolytes remain normal TSH is normal Objective: Vital Signs Temp Pulse Resp BP Pulse Ox 36.6 C 74 18 147/82 H 95 08/11/17 08:00 08/11/17 08:00 08/11/17 08:00 08/11/17 08:00 08/11/17 08:00 Laboratory Results 08/09/17 18:00 08/11/17 05:15 08/10/17 08/11/17 08/12/17 06:59 06:59 06:59 Intake Total 1700 900 Output Total 1960 1150 Balance -260 -250 ICD10 Worksheet Patient Problems: Problems Problem Status Onset Spondylolisthesis of lumbar region Acute
[2017-08-11] MEDS: oxyCODONE IR 5 MG TAB PO PRN ×2 (11:59→17:43)
--- NOTE | 2017-08-11 14:03 | ASMTCMCOM ---
CM Note CM Note Notes: Chart reviewed. Per neuro patient may dc to SNF if able to void. Spoke with RN who states pain is uncontrolled and patient unable to stand this afternoon Bed is available should patient be ready to go today as confirmed by Candice at [facility]. CM to follow. Date Signed: 08/11/2017 02:03 PM Electronically Signed By:Nicole Glynn RN
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
[2017-08-11] MEDS: METHOCARBAMOL 750 MG TAB PO SCH ×2 (15:34→21:58)
[2017-08-11] MEDS: GABAPENTIN 300 MG CAP PO SCH (21:58)
[2017-08-12] MEDS: ACETAMINOPHEN 500 MG TAB PO SCH ×3 (06:04→21:53)
[2017-08-12] MEDS: HEPARIN 5,000 UNIT/0.5 ML SYR SC SCH ×3 (06:04→21:53)
--- NOTE | 2017-08-12 07:44 | SOAPPROG ---
BILLY Progress Note Assessment/Plan: Assessment/Plan: s/p L5/6 laminectomy/fusion and cyst resection and TLIF, POD #5 - doing well this morning. He reports new posterior left leg pain that started yesterday. - PT/OT - encourage ambulation today and continue to work towards placement/ discharge in the interim - Post op lumbar x-rays pending - Lovenox POD #1, SCDc/TEDs - Trevino removed and pt voiding small amounts - Continue to minimize narcotics - Case management work on dispo options/placement Please call neurosurgery with any questions/concerns 08/12/17 07:41 Subjective: awake, alert, pain controlled. He reports new left poterior leg pain in the thigh that started yesterday. denies numbness tingling or weakness. Objective: Vital Signs Temp Pulse Resp BP Pulse Ox 36.9 C 64 21 H 166/85 H 95 08/12/17 07:34 08/12/17 07:34 08/12/17 07:34 08/12/17 07:34 08/12/17 07:34 Laboratory Results 08/09/17 18:00 08/12/17 04:11 08/11/17 08/12/17 08/13/17 05:59 05:59 05:59 Intake Total 900 300 Output Total 1150 30 Balance -250 270 Neuro: A+OX4 COTTRELL to command, sens +LT urinating small amounts Incision: CDI ICD10 Worksheet Patient Problems: Problems Problem Status Onset Spondylolisthesis of lumbar region Acute
[2017-08-12] MEDS: POLYETHYLENE GLYCOL 3350 17 GM PKT PO SCH ×3 (07:52→21:54)
[2017-08-12] MEDS: SENNOSIDES/DOCUSATE SODIUM TAB PO SCH ×2 (07:52→21:54)
[2017-08-12] MEDS: TAMSULOSIN HCL 0.4 MG CAP PO SCH (08:20)
[2017-08-12] MEDS: METHOCARBAMOL 750 MG TAB PO SCH ×3 (08:20→21:54)
[2017-08-12] MEDS: LATANOPROST 0.005% 2.5 ML OPHT DROPS EACHEYE SCH ×2 (08:21→23:11)
[2017-08-12] MEDS: DORZOLAMIDE/TIMOLOL 10 ML OPHT.BTL EACHEYE SCH (08:21)
[2017-08-12] MEDS: METOPROLOL TARTRATE 50 MG TAB PO SCH ×2 (12:01→21:53)
--- NOTE | 2017-08-12 17:49 | HOSPPROG ---
Hospitalist Progress Note Assessment/Plan: DIAGNOSES: -status post lumbar laminectomy overall slow but continued improvement in pain and mobility -will continue Neurontin as that seems to have helped his leg pain -acute encephalopathy, multifactorial, -notably improved today -continue to avoid sedating meds as able and other usual anti delirium measures -new onset atrial fibrillation with rapid ventricular rate has occurred on 2 occasions with spontaneous conversion to sinus rhythm -metoprolol added for rate control -it is elected to delay full-dose anticoagulation until probably the time of discharge to avoid bleeding into the wound bed -will need a outpatient cardiology follow-up -acute urinary retention, asymptomatic, Trevino removed today, started on Flomax at this point -strongly suspect that this is a prostatic in origin aggravated by anesthesia pain medicines and mobility issues -Flomax has been started -as he is not having pain and or renal failure would only do straight caths if he develops significant pain, or consider Trevino if he starts developing what seems like obstructive renal failure -will follow renal function here -obstructive sleep apnea chronic and stable; CPAP -hypertension well controlled; some hypotension earlier, resolved at this point after fluids SUBJECTIVE: Feels notably better today, states his back and left leg pain are improved and he is able to stand for longer period of time though not walking yet No shortness of breath, fever symptoms, abdominal pane, nausea No fever symptoms Notably he has been finding it more difficult to empty his bladder but does not have any pain in his bladder or prostate her urethral areas. OBJECTIVE Vitals reviewed: Stable without fever Associate Dean, my review: Sinus The nurses did do a bladder scan today and found approximately 400 mL bladder volume Exam: alert relaxed, has a reasonably normal conversation but still somewhat disoriented when pushed for details skin warm dry color ok resps not labored lungs clear BSs heart regular abd soft nondistended nontender, bowel sounds present limbs warm, no edema iv site ok Objective: Vital Signs Temp Pulse Resp BP Pulse Ox 36.4 C 66 26 H 129/74 H 94 08/12/17 11:15 08/12/17 15:41 08/12/17 15:41 08/12/17 15:41 08/12/17 15:41 Laboratory Results 08/09/17 18:00 08/12/17 04:11 08/11/17 08/12/17 08/13/17 06:59 06:59 06:59 Intake Total 900 300 820 Output Total 1150 30 400 Balance -250 270 420 ICD10 Worksheet Patient Problems: Problems Problem Status Onset Spondylolisthesis of lumbar region Acute
[2017-08-12] MEDS: GABAPENTIN 300 MG CAP PO SCH (21:53)
[2017-08-13] MEDS: HEPARIN 5,000 UNIT/0.5 ML SYR SC SCH ×2 (05:32→15:07)
[2017-08-13] MEDS: ACETAMINOPHEN 500 MG TAB PO SCH ×2 (05:33→15:04)
[2017-08-13] MEDS: POLYETHYLENE GLYCOL 3350 17 GM PKT PO SCH ×2 (07:11→15:08)
[2017-08-13] MEDS: METHOCARBAMOL 750 MG TAB PO SCH ×2 (08:19→15:03)
[2017-08-13] MEDS: TAMSULOSIN HCL 0.4 MG CAP PO SCH (08:19)
[2017-08-13] MEDS: METOPROLOL TARTRATE 50 MG TAB PO SCH (08:19)
[2017-08-13] MEDS: LATANOPROST 0.005% 2.5 ML OPHT DROPS EACHEYE SCH (08:23)
--- NOTE | 2017-08-13 08:23 | NEUSURGPN ---
Assessment/Plan: s/p L5/6 laminectomy/fusion and cyst resection and TLIF, POD #6 - doing well this morning. - PT/OT - encourage ambulation today and continue to work towards placement/ discharge in the interim - Post op lumbar x-rays demonstrate intact hardware -DVT prophx: TEDs, SCDs, Lovenox - Continue to minimize narcotics - Case management work on dispo options/placement, likely [facility] once cleared by medicine and cardiology Please call neurosurgery with any questions/concerns Subjective: Denies any new pain or weakness. Objective: NAD A&Ox3 MAEx4 5/ and equal in BUE and BLE. Incision c/d/i Catheter Insertion Date: 08/07/17 - Physician Discussed Patient with : Abi Neurosurgery Physical Exam - Vitals, I&O, Labs I and O 08/12/17 08/13/17 08/14/17 05:59 05:59 05:59 Intake Total 300 1120 Output Total 30 875 Balance 270 245 Intake: Oral (ml) 300 1120 Output: Urine (ml) 30 875 Urinal 30 875 Other: Intake Quantity Yes Yes Sufficient Output Comment Incontinence bladder scan for 327 Number of Voids Incontinence 1 2 Urinal 1 3 Number of Stools Incontinence 1 1 Urinal 1 Bladder Scan Volume (ml) Incontinence 327 Urinal 289 450 Post Void Residual Scan Volume (ml) Urinal 300 Vital Signs Temp Pulse Resp BP Pulse Ox 37.0 C 61 16 137/80 H 93 08/13/17 04:00 08/13/17 04:00 08/13/17 04:00 08/13/17 04:00 08/13/17 04:00 Laboratory Results 08/09/17 18:00 08/12/17 04:11 ICD10 Worksheet Patient Problems: Problems Problem Status Onset Spondylolisthesis of lumbar region Acute
[2017-08-13] MEDS: DORZOLAMIDE/TIMOLOL 10 ML OPHT.BTL EACHEYE SCH (08:24)
[2017-08-13] MEDS: SENNOSIDES/DOCUSATE SODIUM TAB PO SCH (08:25)
[2017-08-13 08:27] VITALS: TEMP 98; O2SAT 96
--- NOTE | 2017-08-13 11:29 | HOSPPROG ---
Hospitalist Progress Note Assessment/Plan: DIAGNOSES: -status post lumbar laminectomy overall slow but continued improvement in pain and mobility -will continue Neurontin as that seems to have helped his leg pain -acute encephalopathy, multifactorial, (resolved) -continue to avoid sedating meds as able and other usual anti delirium measures -new onset atrial fibrillation with rapid ventricular rate has occurred on 2 occasions with spontaneous conversion to sinus rhythm -metoprolol added for rate control -it is elected to delay full-dose anticoagulation to avoid bleeding into the wound bed. -will need a outpatient cardiology follow-up in the next couple of weeks to discuss anticoagulation -acute urinary retention, asymptomatic, Trevino removed today, started on Flomax at this point -strongly suspect that this is a prostatic in origin aggravated by anesthesia pain medicines and mobility issues -cont Flomax has been started -obstructive sleep apnea chronic and stable; CPAP -hypertension well controlled; some hypotension earlier, resolved at this point after fluids Dispo: OK to DC to rehab with outpatient cardiology followup Subjective: no complaints Objective: Vital Signs Temp Pulse Resp BP Pulse Ox 36.6 C 64 16 144/77 H 96 08/13/17 08:00 08/13/17 08:19 08/13/17 08:00 08/13/17 08:19 08/13/17 08:00 Laboratory Results 08/09/17 18:00 08/12/17 04:11 08/12/17 08/13/17 08/14/17 05:59 05:59 05:59 Intake Total 300 1120 Output Total 30 875 Balance 270 245 - Physical Exam Constitutional: no apparent distress, appears nourished, not in pain Ears, Nose, Mouth, Throat: moist mucous membranes, hearing normal, ears appear normal, no oral mucosal ulcers Cardiovascular: regular rate and rhythym, no murmur, rub, or gallop Respiratory: no respiratory distress, no rales or rhonchi, clear to auscultation Neurologic: AAOx3, sensation intact bilaterally, CN II-XII Intact, No facial droop ICD10 Worksheet Patient Problems: Problems Problem Status Onset Spondylolisthesis of lumbar region Acute
[2017-08-13 11:56] VITALS: BP 131/76; PULSE 58; RESP 15
--- NOTE | 2017-08-13 14:23 | PDIAF ---
- Diagnosis Code Status: Full Code - Medication Management Discharge Medications: Medications to Continue on Transfer Dorzolamide HCl/Timolol Maleat [Cosopt Eye Drops] 1 drop EACHEYE DAILY 07/16/17 [Last Taken 08/06/17] Latanoprost 0.005% [Xalatan 0.005% (*)] 1 drops EACHEYE BID 07/16/17 [Last Taken 08/06/17] Acetaminophen [Tylenol ES 500 mg (*)] 1,000 mg PO Q8HRS tab 08/13/17 [Last Taken Unknown] Gabapentin [Neurontin 300 MG (*)] 300 mg PO HS cap 08/13/17 [Last Taken Unknown ] Methocarbamol [Robaxin 750 mg (*)] 750 mg PO TID tab 08/13/17 [Last Taken Unknown] Metoprolol Tartrate [Lopressor 50 mg (*)] 50 mg PO BID tab 08/13/17 [Last Taken Unknown] Sennosides/Docusate Sodium [Senokot-S] 1 - 2 tab PO BID tab 08/13/17 [Last Taken Unknown] Tamsulosin HCl [Flomax 0.4 MG (*)] 0.4 mg PO DAILY cap 08/13/17 [Last Taken Unknown] oxyCODONE IR [Oxycodone Ir (*)] 5 - 10 mg PO Q4HRS PRN tab 08/13/17 [Last Taken Unknown] Discharge Medications: Refer to the Discharge Home Medication list for PRN reason. - Orders Services needed: Registered Nurse, Physical Therapy, Occupational Therapy Diet Texture: Regular Texture Diet - Follow Up Care Current Providers and Referrals: Temi Dallas MD [Primary Care Provider] - CARDIOLOGY,[facility] [Ed Groups for Call Sched] - follow up in 1 week ()
--- NOTE | 2017-08-14 10:08 | ASDISCHSUM ---
Discharge Information Plan Status:SNF Medically Cleared to Leave:08/12/2017 Discharge Date:08/13/2017 05:05 PM CM D/C Disposition: ADT D/C Disposition:[facility] Facility Projected Discharge Date:08/13/2017 11:00 AM Transportation at D/C: Discharge Delay Reason: Follow-Up Date:08/13/2017 11:00 AM Discharge Slot: Final Diagnosis: Placement Information Referral Type:*[facility]/SNF Referral ID:[id number] Provider Name:[facility] Address 1:[address] Address 2: City:[place] Selection Factors: State:[place] Patient Contact Information Contact Name:MANUEL Relationship:Son Address:[address] [place] Alternate Phone: State/Zip Code:[place] [address] Email: Financial Information Financial Class:Medicare Advantage Plans Primary Plan Desc:[facility] ADVANTAGE PLANS Primary Plan Number:[id number] Secondary Plan Desc: Secondary Plan Number: Assessment Information [facility] CM Progress Note CM Note CM Note Notes: Discussed SNF options with pt. He lives at [facility] and would like to stay in [place]. Happy to go to [facility] if they accept him. Sent referral. Pt has Medicare Advantage Plan so [facility] will need to get insurance authorization. Date Signed: 08/08/2017 03:25 PM Electronically Signed By:ЕЛЕНА Acosta [facility] CM Progress Note CM Note CM Note Notes: Patient has been accepted at [facility] if all therapy recommendations are on board. PT says SNF, OT says inpatient rehab. Inpatient rehab is awaiting therapy recommendations to do their eval. [facility] has not made recommendations yet. Patient wants to go to [facility] which is close to his home in [place]. CM will follow. Date Signed: 08/09/2017 02:10 PM Electronically Signed By:Chelle Collins LCSW [facility] CM Progress Note CM Note CM Note Notes: Chart reviewed. Per neuro patient may dc to SNF if able to void. Spoke with RN who states pain is uncontrolled and patient unable to stand this afternoon Bed is available should patient be ready to go today as confirmed by Candice at [facility]. CM to follow. Date Signed: 08/11/2017 02:03 PM Electronically Signed By:Nicole Glynn RN Case Management Discharge Plan Note Case Management Discharge Discharge Order Complete? Answers: Yes Patient to Obtain Answers: Other Notes: [facility] Medications Transportation Arranged Answers: Other Notes: [facility] EMTALA Complete Answers: No Case Management Transport Answers: Yes Form Complete Faxed Final Orders Answers: Yes Agency/Facility Transfer Answers: Yes Report Printed & Faxed to Receiving Agency Family Notified Answers: Yes Discharge Comments Notes: CM met w/ pt and family for dispo planning. Pt is being discharged to [facility] today. Neuro surgery and cards has cleared pt for d/c. D/C orders sent to [facility]. CM provided LAITH Corcoran w/ phone number to give report. CM available for changes. Plan: Yue Date Signed: 08/13/2017 04:27 PM Electronically Signed By:АННА Landrum Intervention Information Intervention Type:*IM-Signed Date of Service:08/13/2017 02:03 PM Patient Type:Inpatient Staff Member:Mary Lou Amato Hours: Discipline: Severity: Comment:
== END 2017-08-13 17:05 | DRG 453 ==
LOC: F3N 09:34 → F2W 08-09 19:38
PROVIDERS: ADMIT Neurological Surgery; ATTEND Neurological Surgery
PROC: 0SG0071 Fusion of Lumbar Vertebral Joint with Autologous Tissue Substitute, Posterior Approach, Posterior Column, Open Approach (ICD-10-PCS; principal; 2017-08-07 11:45)
PROC: 0SB20ZZ Excision of Lumbar Vertebral Disc, Open Approach (ICD-10-PCS; principal; 2017-08-07 11:45)
PROC: 8E0WXBF Computer Assisted Procedure of Trunk Region, With Fluoroscopy (ICD-10-PCS; principal; 2017-08-07 11:45)
PROC: 4A1004G Monitoring of Central Nervous Electrical Activity, Intraoperative, Open Approach (ICD-10-PCS; principal; 2017-08-07 11:45)
PROC: 00NY0ZZ Release Lumbar Spinal Cord, Open Approach (ICD-10-PCS; principal; 2017-08-07 11:45)
PROC: 0SG00AJ Fusion of Lumbar Vertebral Joint with Interbody Fusion Device, Posterior Approach, Anterior Column, Open Approach (ICD-10-PCS; principal; 2017-08-07 11:45)
PROC: 01NB0ZZ Release Lumbar Nerve, Open Approach (ICD-10-PCS; principal; 2017-08-07 11:45)
PROC: 00BT0ZX Excision of Spinal Meninges, Open Approach, Diagnostic (ICD-10-PCS; principal; 2017-08-07 11:45)
DX: M43.16 Spondylolisthesis, lumbar region (principal); M48.062 Spinal stenosis, lumbar region with neurogenic claudication; M71.38 Other bursal cyst, other site; M67.48 Ganglion, other site; G93.40 Encephalopathy, unspecified; N17.9 Acute kidney failure, unspecified; I10 Essential (primary) hypertension; I95.9 Hypotension, unspecified; R33.9 Retention of urine, unspecified; G47.33 Obstructive sleep apnea (adult) (pediatric); I48.91 Unspecified atrial fibrillation
CPT/HCPCS: 92507-GN; 92523-GN; 97110-GP; 97116-GP; 97161-GP; 97166-GO; 97530-GO; 97530-GP; 97535-GO; C1713; C1762; G8978-GP-CK; G8979-GP-CI; G8987-GO-CJ; G8988-GO-CI; G9168-GN-CK; G9169-GN-CI; J0171; J0690; J2250; J2274; J2704; J3010

== ENCOUNTER → 2017-09-15 | Outpatient (CLI) | payer OTHER | LOC: FIMAGING 11:36 | PROVIDERS: ATTEND Physician Assistant Surgical | DX: Z09 Encounter for follow-up examination after completed treatment for conditions other than malignant neoplasm (principal); Z98.1 Arthrodesis status ==

== ENCOUNTER → 2017-11-05 | Outpatient (CLI) | payer OTHER | LOC: FIMAGING 10:19 | PROVIDERS: ATTEND Physician Assistant Surgical | DX: Z09 Encounter for follow-up examination after completed treatment for conditions other than malignant neoplasm (principal); Z98.1 Arthrodesis status; M46.96 Unspecified inflammatory spondylopathy, lumbar region ==

== ENCOUNTER → 2018-01-04 | Outpatient (CLI) | payer OTHER | LOC: FIMAGING 13:32 | PROVIDERS: ATTEND Physician Assistant Surgical | DX: Z09 Encounter for follow-up examination after completed treatment for conditions other than malignant neoplasm (principal); Z98.1 Arthrodesis status; M41.86 Other forms of scoliosis, lumbar region ==

== ENCOUNTER → 2018-07-26 | Outpatient (CLI) | payer OTHER | LOC: FLAB 12:34 | PROVIDERS: ATTEND Neurological Surgery | DX: Z09 Encounter for follow-up examination after completed treatment for conditions other than malignant neoplasm (principal); Z98.1 Arthrodesis status; M51.36 Other intervertebral disc degeneration, lumbar region; M51.37 Other intervertebral disc degeneration, lumbosacral region; M41.85 Other forms of scoliosis, thoracolumbar region ==